=== PATIENT | female | born 1980 | race Two or more races ===

== ENCOUNTER 2017-01-26 06:38 | Day surgery (SDC) | payer OTHER ==
[2017-01-18 16:11] LABS: BASOPHILS 0.4 %; BASOPHILS ABSOLUTE 0.03 10/3/uL (0.0-0.16); EOSINOPHILS 2.6 %; EOSINOPHILS ABSOLUTE 0.21 10/3/uL (0.0-0.53); HEMATOCRIT 37.5 % (36.0-48.0); HEMOGLOBIN 12.2 g/dL (12.0-16.0); IMMATURE GRANULOCYTES 0.1 %; IMMATURE GRANULOCYTES ABSOLUTE 0.01 10/3/uL (0.0-0.11); LYMPHOCYTES 27.3 %; LYMPHOCYTES ABSOLUTE 2.19 10/3/uL (0.67-4.30); MEAN CORPUS HGB CONC 32.5 g/dL (32.0-36.0); MONOCYTES 5.9 %; MONOCYTES ABSOLUTE 0.47 10/3/uL (0.21-1.20); NEUTROPHILS 63.7 %; NEUTROPHILS ABSOLUTE 5.11 10/3/uL (2.02-8.40); PLATELET COUNT 307 10/3/uL (150-400); RBC DISTRIBUTION WIDTH 14.9 % (12.0-16.0); RED CELL COUNT 4.36 10/6/uL (4.0-5.6)
[2017-01-18 16:13] LABS: MANUAL DIFF NO %
[2017-01-18 16:21] LABS: BUN (BLOOD UREA NITROGEN) 11 MG/DL (6-23); CALCIUM, SERUM 8.6 MG/DL (8.5-10.4); CHLORIDE, SERUM 105 MMOL/L (96-112); CO2 (CARBON DIOXIDE) 28 MMOL/L (24-34); CREATININE 0.68 MG/DL (0.55-1.02); GFR AFRICAN AMERICAN 130 ML/MIN (>=60); GFR NON AFRICAN AMERICAN 112 ML/MIN (>=60); GLUCOSE, SERUM 85 MG/DL (60-99); POTASSIUM, SERUM 3.8 MMOL/L (3.5-5.3); SODIUM, SERUM 136 MMOL/L (135-148)
[2017-01-18 16:30] LABS: PROTIME (NOT ORD) 13.1 SEC (12.0-14.5)
--- NOTE | ~2017-01-26 | OP ---
Record Of Operation [facility] [address] [place]. [address] NAME: GERI CRANDALL : 78 STATUS : [facility]#: [id number] AGE: 36 ADM/REG DATE : 01/26/17 MR#: [id number] REPORT SERV DATE: 01/27/17 DICTATED BY: MARTA NAVARRO DATE: 01/27/17 REPORT STATUS : Draft TRANSCRIBED BY: [facility] DATE: 01/27/17 DATE OF PROCEDURE: 01/26/2017 PREOPERATIVE DIAGNOSIS: Follicular lesion, right thyroid lobe. POSTOPERATIVE DIAGNOSIS: Follicular lesion, right thyroid lobe. OPERATIVE PROCEDURE PERFORMED: Right thyroid lobectomy. INDICATIONS AND SIGNIFICANT HISTORY: The patient is a 36-year-old female with significant history of a right thyroid lobe lesion. 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 A carcinoma cannot be excluded. The size of her lesion was greater than 6 cm. The patient was felt to benefit from right thyroid lobectomy, possible total thyroidectomy, and was scheduled for such. OPERATIVE PROCEDURE AND FINDINGS: After informed consent was obtained, the patient was brought to the operating room, placed on the operating room in supine position, at which point general endotracheal anesthesia was induced by the Anesthesia Service utilizing a NIM nerve monitoring tube. The NIM nerve monitor was set up to monitor a laryngeal musculature throughout the course of the case. At this point, the skin of the neck was prepped and draped in standard sterile fashion. 15 blade scalpel was used to make a skin incision approximately two fingerbreadths above the sternal notch. Subplatysmal flaps were elevated superiorly and inferiorly. The strap muscles were divided in midline and retracted laterally. At this point, the right thyroid lobe was identified, and was found to be really replaced by a large thyroid nodule. A Harmonic scalpel was used to remove attachments including the inferior thyroid veins, the middle thyroid veins, and superior pole vessels. The thyroid isthmus was divided adjacent to the left thyroid lobe, and a combination of sharp and blunt dissection was used to elevate the right thyroid lobe from its position in the neck. The thyroid lobe was then expressed through the skin and sent to Pathology. The pathology returned as follicular lesion pending permanent sectioning. At this point, the wound was closed in multiple layers consisting of deep Vicryl suture followed by closure of the skin with Prolene. Steri-Strips were applied. She was turned back toward Anesthesia, aroused from anesthesia, and taken to the Postanesthesia Care Unit in satisfactory condition. COMPLICATIONS: None. ESTIMATED BLOOD LOSS: Less than 20 mL. IV FLUIDS: Per Anesthesia. DLA/[facility]LL[facility] Record Of [place] [address] [address] [address] NAME: GERI CRANDALL : [birth year] STATUS : [facility] PAT#: [id number] AGE: 36 ADM/REG DATE : 01/26/17 MR#: [id number] REPORT SERV DATE: 01/27/17 DICTATED BY: MARTA NAVARRO DATE: 01/27/17 REPORT STATUS : Draft TRANSCRIBED BY: [facility] DATE: 01/27/17 Marta Navarro M.D. / [id number] CC: Lb Valdovinos
[~2017-01-26 06:38] MED LIST: *DENIES
== END 2017-01-26 16:07 | disposition home or self-care (01) ==
LOC: SDC 06:38
PROVIDERS: Otolaryngology
PROC: 0GTH0ZZ Resection of Right Thyroid Gland Lobe, Open Approach (ICD-10-PCS; principal; 2017-01-26 07:45)
DX: D34 Benign neoplasm of thyroid gland (principal); E04.9 Nontoxic goiter, unspecified; Z98.890 Other specified postprocedural states
CPT/HCPCS: 80048; 84703; 85025; 85610; 85730; 88307; 88331; A9270-GY; J0690; J1170; J2250; J2370; J2405; J2710; J3010